=== PATIENT | female | born 2000 | race Caucasian/White ===

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

== ENCOUNTER 2020-09-12 10:57 | Outpatient (CLI) | payer BC ==
[~2020-09-12] VITALS: Ht 170.3 cm; Wt 81.5 kg
[~2020-09-12 10:57] MED LIST: SYNTHROID0.125 MG/T PO; ZOLOFT 100MG100 MG PO
[2020-09-12] MEDS ORDERED: JUNEL 1/20 20 M1 TAB (12:11)
[2020-09-12] MEDS ORDERED: INDERAL 20MG20 MG PO (12:13)
[2020-09-12 12:15] VITALS: BP 114/88; PULSE 74; TEMP 98.9
--- NOTE | 2020-09-12 16:21 | NUR ---
Pt returned from procedure at this time.Report from Ginger Roach.
[2020-09-12] MEDS ORDERED: PROAMATINE 5MG T5 MG PO (16:22)
[2020-09-12 16:25] VITALS: BP 105/77; PULSE 88
--- NOTE | 2020-09-12 17:00 | NUR ---
Discharge instructions given to pt,pt verbalizes understanding.INT removed,catheter tip intact.Pt escorted out by this nurse.
== END 2020-09-12 17:08 | disposition home or self-care (01) ==
LOC: COL.CAR 10:57
DX: I49.8 Other specified cardiac arrhythmias (principal); E06.3 Autoimmune thyroiditis; M62.82 Rhabdomyolysis; Z91.018 Allergy to other foods; Z86.39 Personal history of other endocrine, nutritional and metabolic disease; Z20.822 Contact with and (suspected) exposure to COVID-19; Z79.890 Hormone replacement therapy; Z79.899 Other long term (current) drug therapy; Z82.49 Family history of ischemic heart disease and other diseases of the circulatory system; Z80.9 Family history of malignant neoplasm, unspecified